=== PATIENT | male | born 1980 | race Two or more races ===

== ENCOUNTER 2021-12-18 20:32 | Emergency (ER) | payer OTHER ==
[~2021-12-18] VITALS: Ht 188 cm; Wt 86.2 kg
[2021-12-18 21:02] VITALS: BP 160/99
--- NOTE | 2021-12-18 21:34 | NUR ---
Patient discharged to home in stable condition. Written and verbal after care instructions given. Patient verbalizes understanding of instruction.
== END 2021-12-18 21:39 | disposition home or self-care (01) ==
LOC: ER 20:52
DX: Z00.00 Encounter for general adult medical examination without abnormal findings (principal); E11.65 Type 2 diabetes mellitus with hyperglycemia; I10 Essential (primary) hypertension
CPT/HCPCS: 82962-TC